=== PATIENT | male | born 1985 | race African-American/Black ===

== ENCOUNTER 2016-10-22 11:00 | Emergency (ER) | payer OTHER ==
[~2016-10-22] VITALS: Ht 175.3 cm; Wt 99.0 kg
[2016-10-22] MEDS ORDERED: NORCO 5/3251 TABLET PO (13:12)
[2016-10-22 13:34] VITALS: BP 125/80
== END 2016-10-22 13:36 | disposition home or self-care (01) ==
LOC: EME 11:00
PROC: 2W3EX1Z Immobilization of Right Hand using Splint (ICD-10-PCS; principal; 2016-10-22)
DX: S62.024A Nondisplaced fracture of middle third of navicular [scaphoid] bone of right wrist, initial encounter for closed fracture (principal); W01.0XXA Fall on same level from slipping, tripping and stumbling without subsequent striking against object, initial encounter
CPT/HCPCS: 73110; 73130; 99281; 99283